=== PATIENT | male | born 1980 | race African-American/Black ===

== ENCOUNTER 2022-08-29 16:23 | Emergency (ER) | payer MEDICAID, OTHER ==
[~2022-08-29] VITALS: Ht 188 cm; Wt 94.0 kg
[2022-08-29] MEDS ORDERED: KETOROLAC 60MG/2ML VIAL IM STA (17:05)
[2022-08-29 17:35] VITALS: BP 160/94
[2022-08-29 17:39] LABS: CLARITY URINE CLEAR (CLEAR); COLOR URINE YELLOW (YELLOW); KETONES URINE TRACE (NEGATIVE); LEUKOCYTE ESTERASE URINE NEGATIVE (NEGATIVE); NITRITE URINE NEGATIVE (NEGATIVE); OCCULT BLOOD URINE 3+ (NEGATIVE); PH URINE 6.5 (4.5-8.0); PROTEIN URINE 1+ (NEGATIVE); SPECIFIC GRAVITY URINE 1.022 (1.005-1.030)
[2022-08-29] MEDS ORDERED: IBUP-2029 MT (20:22)
[2022-08-29] MEDS ORDERED: TAMS-11 MT (20:22)
== END 2022-08-29 20:42 | disposition home or self-care (01) ==
LOC: ER 16:23
DX: N23 Unspecified renal colic (principal); I25.2 Old myocardial infarction; Z87.19 Personal history of other diseases of the digestive system
CPT/HCPCS: 74176; 81003; 96372; 99285; J1885